=== PATIENT | female | born 1970 | race Caucasian/White ===

== ENCOUNTER 2022-12-09 08:05 | Outpatient (CLI) | payer OTHER, SELFPAY | END 2022-12-09 08:06 | disposition home or self-care (01) | LOC: NFLDREF 12-12 11:00 | PROVIDERS: PCP Internal Medicine; Referring Provider Internal Medicine; Visit Provider Internal Medicine | DX: Z13.6 Encounter for screening for cardiovascular disorders (principal) | CPT/HCPCS: 80061 ==

== ENCOUNTER 2023-08-09 15:31 | Emergency (ER) | payer OTHER, SELFPAY ==
[2023-08-09 15:41] VITALS: BP 114/77; RESP 16; TEMP 36.4; O2SAT 95; BMI 17.7
[2023-08-09 17:02] LABS: Basophils Percent Auto 0.5 % (0.0-3.0); Eosinophils Percent Auto 0.1 % (0.0-7.0); Hematocrit 46.8 % (33.0-51.0); Hemoglobin* 15.2 gm/dL (12.0-16.0); Immature Granulocytes Pct Auto 0.2 %; Lymphocytes Percent Auto 7.9 % (20-44); Mean Corpuscular HGB Conc 33 gm/dL (32-36); Mean Corpuscular Hemoglobin 29 pg (26-34); Mean Corpuscular Volume 90 fL (80-100); Monocytes Percent Auto 4.1 % (0.0-11.0); Neutrophils Percent Auto 87.2 % (42.0-72.0); Platelet Count* 204 K/uL (140-440); RDW Coefficient of Variation % 12.3 % (11.5-15.5); Red Blood Count 5.21 m/uL (4.00-5.20)
[2023-08-09 17:04] LABS: Slide Review Reflex No
[2023-08-09] MEDS: 0.9 % SODIUM CHLORIDE 1000 ml 1,000 ML IV ×2 (17:08→17:57)
[2023-08-09] MEDS: KETOROLAC 30 MG/ML inj IVP (17:08)
[2023-08-09] MEDS: ONDANSETRON 2 MG/ML inj 4 MG IVP (17:08)
[2023-08-09 17:24] LABS: Albumin* 4.7 g/dL (3.3-5.0)
[2023-08-09 17:25] LABS: Chloride* 103 mmol/L (96-114); Potassium* 4.2 mmol/L (3.6-5.1); Sodium* 136 mmol/L (135-149)
[2023-08-09 17:27] LABS: Alkaline Phosphatase* 36 U/L (40-150); Aspartate Amino Transferase* 46 U/L (12-35); Bilirubin Direct* 0.1 mg/dL (0.0-0.5); Bilirubin Total* 0.7 mg/dL (0.1-1.5); Total Protein* 7.7 g/dL (6.0-8.3)
[2023-08-09 17:28] LABS: Alanine Aminotransferase* 25 U/L (4-35); Creatinine* 0.6 mg/dL (0.5-1.5); Est. Creatinine Clearance* 80.32; Estimated Glomerular Filt Rate 109 ml/min; Lipase* 69 U/L (23-300)
[2023-08-09 17:29] LABS: Anion Gap 8 mEq/L (7-15); Blood Urea Nitrogen* 14 mg/dL (7-30); Calcium* 9.4 mg/dL (8.4-10.6); Carbon Dioxide* 25 mmol/L (20-32); Glucose* 79 mg/dL (60-115)
[2023-08-09 17:35] LABS: C Reactive Protein* < 0.5 mg/dL (0.5-1.0)
[2023-08-09 17:43] LABS: Amylase* 107 U/L (18-89)
[2023-08-09 18:06] LABS: Appearance Urine Clear (Clear); Bilirubin Urine Negative (Negative); Blood Urine Negative (Negative); Color Urine Yellow (Yellow); Glucose Urine Negative (Negative); Ketones Urine 2+ (Negative); Leukocyte Esterase Urine Negative (Negative); Nitrite Urine Negative (Negative); Protein Urine 1+ (Negative); Specific Gravity Urine >= 1.030 (1.000-1.030); Urobilinogen Urine 0.2 (0.2-1.0); pH Urine 5.5 (5.0-8.5)
[2023-08-09 18:07] LABS: Ur HCG Qualitative* Negative (Negative)
--- NOTE | 2023-08-09 18:12 | CRLHL7_ITS ---
For Patients: As a result of the Century Cures Act, medical imaging exams and procedure reports are released immediately into your electronic medical record. You may view this report before your referring provider. If you have questions, please contact your health care provider. INDICATION: Left flank pain TECHNIQUE: CT abdomen and pelvis with contrast. 49 mL Isovue 370 COMPARISON: None FINDINGS: Study limited due to lack of intra-abdominal fat. Lower chest: Unremarkable. Liver: Small low-attenuation lesion right posterior liver probably reflects small cyst Spleen: Unremarkable. Pancreas: Unremarkable. Gallbladder and bile ducts: Unremarkable. Kidneys: Unremarkable. No kidney or ureteral stones and no hydronephrosis. Adrenal glands: Unremarkable. GI tract: Large amount stool throughout the colon. Normal appendix. Neither 0 on Vascular structures: Unremarkable. Lymph nodes: Unremarkable. Miscellaneous: Unremarkable. No free air or significant free fluid. Pelvic Organs: Unremarkable. Bones: Unremarkable for age. IMPRESSION: 1. Lack of intra-abdominal fat limits evaluation. Kidneys are unremarkable without hydronephrosis or renal calculi seen. Normal appendix. Large amount of stool within the colon. Please note that all CT scans at this facility use dose modulation, iterative reconstruction, and/or weight-based dosing when appropriate to reduce radiation dose to as low as reasonably achievable. Dictated by Corrine Kinney MD @ 08/09/2023 6:58:41 PM (Electronically Signed)
[2023-08-09 18:21] LABS: Bacteria Urine Few; RBC Urine 0-2 (0-2); Squamous Epithelial Cell Urine Few (None-Few)
[2023-08-09] MEDS: MORPHINE 4 MG/ML INJ IVP (18:59)
--- NOTE | 2023-08-09 23:33 | ED_ITS ---
HPI - Abdominal Pain General Date Seen: 08/09/23 Chief Complaint: Abdominal Pain Stated Complaint: stomach pain, back pain, chills Time Seen by Provider: 08/09/23 15:49 Source: patient and family Mode of arrival: ambulatory Limitations: no limitations History of Present Illness HPI narrative: Patient is a 52-year-old female presents here with abdominal pain on the left upper area of her abdomen. This is been for the last day or so, does go to her back, she has had pain like this before, related to her irritable bowel syndrome, but says this is worse. Her bowel movements have been normal, she does eyes no blood in them there is no urination issues, she has no problems with dysuria frequency. Denies any fevers chills or sweats. She is not taking any medications for this. No history of trauma, MD elicited complaint: abdominal pain Pertinent past history: constipation Onset (ago): hour(s) Location: LUQ, LLQ and L flank Severity: moderate Quality: cramping and stabbing Radiation: none Migration to: no migration Exacerbating factors: movement Relieving factors: nothing Associated symptoms: nausea Related Data Patient : No Home Medications Medication Instructions Recorded Confirmed Lactobacillus cap PO DAILY 12/16/22 12/16/22 acidophilus-Bifidobac.animalis 2.5 billion cell capsule (Daily Probiotic) ascorbic acid (vitamin C) 1,000 mg 1 g PO BID 12/16/22 12/16/22 capsule calcium carbonate 600 mg-vitamin cap PO DAILY 12/16/22 12/16/22 D3 12.5 mcg (500 unit) capsule (Calcium 600 with Vitamin D3) cholecalciferol (vitamin D3) 25 1,000 unit PO DAILY 12/16/22 12/16/22 mcg (1,000 unit) tablet magnesium 200 mg tablet 600 mg PO QDAY 12/16/22 12/16/22 omega-3 fatty acids 1,250 mg 1,250 mg PO QDAY 12/16/22 12/16/22 capsule vitamin B complex 1 cap PO QDAY 12/16/22 12/16/22 zinc gluconate 50 mg tablet 50 mg PO QDAY 12/16/22 12/16/22 Previous Rx's Medication Instructions Recorded sertraline 100 mg tablet 100 mg PO QDAY #90 tabs 12/16/22 trazodone 50 mg tablet 25 mg (1/2 x 50 mg) PO QHS #45 tabs 12/16/22 Allergies Allergy/AdvReac Type Severity Reaction Status Date / Time Sulfa (Sulfonamide Allergy Mild Hives Verified 08/09/23 18:41 Antibiotics) amoxicillin AdvReac Unknown Hives Verified 08/09/23 18:41 Review of Systems Status of ROS Reports: 10 or more systems reviewed and unremarkable except as noted in History and below PFSH PFS Medical History History of anorexia nervosa ?Z86.59 - Personal history of other mental and behavioral disorders (ICD-10) Postconcussion syndrome (2017) ?F07.81 - Postconcussional syndrome (ICD-10) Surgical History Salivary gland absence Social History Smoking Status: Never smoker Little interest or pleasure in doing things: not at all Feeling down, depressed, or hopeless: not at all Exam Narrative: Exam Narrative: On examination I find her in room 2 she is in no apparent distress, pupils equal round reactive to light there is no scleral icterus or redness TMs are normal oropharynx normal there is no adenopathy anterior posterior chains, her chest is good air entry bilaterally with no wheezing crackles noted, heart sounds are normal she has some mild to moderate abdominal pain on the left abdominal region, she has scaphoid, there is noted masses noted bowel sounds are normal. No CVA tenderness no tenderness on palpation over her lumbar thoracic spine, no evidence of any rashes. Const: Vital Signs, click to edit/add: Vital Signs - 24 hr 08/09/23 15:41 Temperature 97.6 F Respiratory Rate 16 Blood Pressure [Ri ght Upper Arm] 114/77 Pulse Oximetry 95 Oxygen Delivery Me thod Room Air Documenting provider has reviewed patient's vital signs: yes Course Course ED Course: I discussed with her that this could be of very will of irritable bowel with constipation. A CT scan is a little bit less diagnostic because of her absence of fat, although we would see appendicitis, abscess, she does have a large amount of stool, and I think a reasonable approach here would be to use MiraLax, to see we can give her some improvement. I have asked her to come back if she has further worsening, Tylenol and ibuprofen for the discomfort, she was agreeable to this. Increase her fluid intake. Vital Signs Vital signs: Initial Vital Signs Temperature 97.6 F 08/09/23 15:41 Temperature Source Temporal Artery Scan 08/09/23 15:41 Respiratory Rate 16 08/09/23 15:41 Blood Pressure 114/77 08/09/23 15:41 Blood Pressure Mean 89 08/09/23 15:41 Blood Pressure Position Sitting 08/09/23 15:41 Pulse Oximetry 95 08/09/23 15:41 Oxygen Delivery Method Room Air 08/09/23 15:41 Vital Signs Temperature 97.6 F 08/09/23 15:41 Respiratory Rate 16 08/09/23 15:41 Blood Pressure 114/77 08/09/23 15:41 Pulse Oximetry 95 08/09/23 15:41 Oxygen Delivery Method Room Air 08/09/23 15:41 Temperature 97.6 F 08/09/23 15:41 Respiratory Rate 16 08/09/23 15:41 Blood Pressure 114/77 08/09/23 15:41 Pulse Oximetry 95 08/09/23 15:41 Oxygen Delivery Method Room Air 08/09/23 15:41 MDM - Abdominal Pain MDM Narrative Medical decision making narrative: During the evaluation of this patient I considered multiple differential diagnosis including life-threatening differentials which are appendicitis, aortic aneurysm, mesenteric ischemia, bowel perforation, ectopic , volvulus and bowel obstruction, other differential diagnosis include but are not limited to inflammatory bowel disease, cholecystitis, pancreatitis, hepatitis, gastritis, GERD, diverticulitis, peptic ulcer disease, pyelonephritis/UTI, renal colic/stone, pelvic inflammatory disease, cervicitis, endometritis, intrauterine , dysfunctional uterine bleeding, ovarian cyst/torsion, spontaneous as well as other etiologies Medical Records Attestation: I reviewed the patient's medical records. Lab Data Attestation: I reviewed the patient's lab results. Lab results narrative: White cell blood count was slightly elevated, hemoglobin normal, CRP was normal which is reassuring liver function tests were normal, the slight elevation of her amylase. I discussed with her to do a CT scan for further delineation. Labs: Lab Results 08/09/23 08/09/23 Range/Units 16:54 17:55 WBC 13.40 H (4.50-11.00) K/uL RBC 5.21 H (4.00-5.20) m/uL Hgb 15.2 (12.0-16.0) gm/dL Hct 46.8 (33.0-51.0) % MCV 90 (80-100) fL MCH 29 (26-34) pg MCHC 33 (32-36) gm/dL RDW Coeff of Sujit 12.3 (11.5-15.5) % Plt Count 204 (140-440) K/uL Neut % (Auto) 87.2 H (42.0-72.0) % Lymph % (Auto) 7.9 L (20-44) % Hardeman % (Auto) 4.1 (0.0-11.0) % Eos % (Auto) 0.1 (0.0-7.0) % Baso % (Auto) 0.5 (0.0-3.0) % Neut # (Auto) 11.70 H (1.7-7.0) K/uL Lymph # (Auto) 1.10 (0.90-2.90) K/uL Hardeman # (Auto) 0.50 (0.00-0.90) K/UL Eos # (Auto) 0.00 (0.00-0.50) K/uL Baso # (Auto) 0.10 (0.00-0.30) K/uL Abs Immat Gran (auto) 0.00 (0.00-0.30) K/uL Imm/Tot Granulo (auto) 0.2 % Sodium 136 (135-149) mmol/L Potassium 4.2 (3.6-5.1) mmol/L Chloride 103 (96-114) mmol/L Carbon Dioxide 25 (20-32) mmol/L Anion Gap 8 (7-15) mEq/L BUN 14 (7-30) mg/dL Creatinine 0.6 (0.5-1.5) mg/dL Estimated Creat Clear 80.32 Estimated GFR 109 ml/min Glucose 79 (60-115) mg/dL Calcium 9.4 (8.4-10.6) mg/dL Total Bilirubin 0.7 (0.1-1.5) mg/dL Direct Bilirubin 0.1 (0.0-0.5) mg/dL AST 46 H (12-35) U/L ALT 25 (4-35) U/L Alkaline Phosphatase 36 L (40-150) U/L C-Reactive Protein < 0.5 L (0.5-1.0) mg/dL Total Protein 7.7 (6.0-8.3) g/dL Albumin 4.7 (3.3-5.0) g/dL Amylase 107 H (18-89) U/L Lipase 69 (23-300) U/L Urine Color Yellow (Yellow) Urine Appearance Clear (Clear) Urine pH 5.5 (5.0-8.5) Ur Specific [place] >= 1.030 (1.000-1.030) Urine Protein 1+ A (Negative) Urine Glucose (UA) Negative (Negative) Urine Ketones 2+ A (Negative) Urine Blood Negative (Negative) Urine Nitrite Negative (Negative) Urine Bilirubin Negative (Negative) Urine Urobilinogen 0.2 (0.2-1.0) Ur Leukocyte Esterase Negative (Negative) Urine RBC 0-2 (0-2) Urine WBC 2-5 (0-5) Ur Squamous Epith Cells Few (None-Few) Urine Bacteria Few A (None) Urine HCG, Qual Negative (Negative) Imaging Data CT scan - abdomen: Attestation: I have reviewed the pertinent imaging results. Radiologist's impression: Patient: MARCELLUS PEREA Facility:?[facility] Patient ID:?[id number] Site Patient ID:?[id number]. Site :?[id number] Study:?CT Abdomen/Pelvis 49CC ISOVUE 370-08/09/2023 6:37:03 PM Ordering Physician:Wade Dominguez Final Report: INDICATION: Left flank pain TECHNIQUE: CT abdomen and pelvis with contrast. 49 mL Isovue 370 COMPARISON: None FINDINGS: Study limited due to lack of intra-abdominal fat. Lower chest: Unremarkable. Liver: Small low-attenuation lesion right posterior liver probably reflects small cyst Spleen: Unremarkable. Pancreas: Unremarkable. Gallbladder and bile ducts: Unremarkable. Kidneys: Unremarkable. No kidney or ureteral stones and no hydronephrosis. Adrenal glands: Unremarkable. GI tract: Large amount stool throughout the colon. Normal appendix. Neither 0 on Vascular structures: Unremarkable. Lymph nodes: Unremarkable. Miscellaneous: Unremarkable. No free air or significant free fluid. Pelvic Organs: Unremarkable. Bones: Unremarkable for age. IMPRESSION: 1. Lack of intra-abdominal fat limits evaluation. Kidneys are unremarkable without hydronephrosis or renal calculi seen. Normal appendix. Large amount of stool within the colon. Please note that all CT scans at this facility use dose modulation, iterative reconstruction, and/or weight-based dosing when appropriate to reduce radiation dose to as low as reasonably achievable. Dictated by Corrine Kinney MD @ 08/09/2023 6:58:41 PM (Electronic Signature) Discharge Plan Discharge Clinical Impression: Abdominal pain, Constipation Patient Disposition: Home, Self-Care Condition: Stable Instructions: Constipation (DC), Abdominal Pain (ED) Additional Instructions: Labs look really good, white count minimally elevated. CT scan did not show any kidney stones, kidney infection, again test is a little bit not as sensitive based on the fact the lack of fat. Lots of stool. Can I wonder if this is more like you say a variant of irritable bowel of the constipation type. Would suggest we use MiraLax 1 cap full with 20 oz of water twice a day for couple days to see we can give you some relief, Tylenol or ibuprofen would be another treatment for pain you can use, but I would try to avoid narcotic medication, as this will DIS constipate her further. Increasing abdominal pain, nausea vomiting or fevers he should re be re- presented to the emergency room for evaluation Activity Level: No Restrictions Discharge Diet: Regular Prescriptions: No Action cholecalciferol (vitamin D3) 25 mcg (1,000 unit) tablet 1,000 unit PO DAILY zinc gluconate 50 mg tablet 50 mg PO QDAY omega-3 fatty acids 1,250 mg capsule 1,250 mg PO QDAY magnesium 200 mg tablet 600 mg PO QDAY calcium carbonate-vitamin D3 [Calcium 600 with Vitamin D3] 600 mg-12.5 mcg (500 unit) capsule PO DAILY ascorbic acid (vitamin C) 1,000 mg capsule 1 g PO BID vitamin B complex Capsule 1 cap PO QDAY Daily Probiotic 2.5 billion cell capsule PO DAILY sertraline 100 mg tablet 100 mg PO QDAY Qty: 90 3RF trazodone 50 mg tablet 25 mg PO QHS Qty: 45 3RF Follow Up/Referrals: Harmony Boudreaux MD [Primary Care Provider] - Stand Alone [facility] Info Inst[facility]
== END 2023-08-09 19:21 | disposition home or self-care (01) ==
PROVIDERS: Emergency Provider Family Medicine; PCP Internal Medicine
DX: R10.12 Left upper quadrant pain (principal); K59.00 Constipation, unspecified
CPT/HCPCS: 36415; 74177; 80048; 80076; 81001; 81025; 82150; 83690; 85025; 86140; 87086; 96374; 96375; 99284; J1885; J2270; J2405; J7030; Q9967

== ENCOUNTER 2024-08-03 09:02 | Outpatient (CLI) | payer OTHER, SELFPAY ==
--- OUTSIDE RECORDS SUMMARY | 2024-08-03 09:04 | XMS_ITS | Clinical Summary ---
Author Organization [employer] [facility] Address [place], [place] [address] Care Team Providers Care Case Management Associate Name Role Phone Harmony Boudreaux MD Primary Care Provider [phone] Allergies Active Allergy Reactions Criticality Noted Date Comments Sulfa (Sulfonamide Antibiotics) Hives 01/2007 Medications Medication Sig Dispensed Refills Start Date End Date Status ZOLOFT 50 MG TABIndications:Anxiet y state, unspecified take 1/2 tablet (50 mg) by oral route once daily for three days then one tablet by oral route daily 30 2 06/29/2007 Active traZODone (DESYREL) 50 mg tablet Take 50 mg by mouth at bedtime. Active Breast Pump - PurchaseIndications:L actation disorder For home use. Gestation age at delivery: 30 weeks. Reason for need: separation, prematurity. Length of need: 6 months 1 Device 0 09/03/2015 Active Breast Pump-RentalIndication s: disorder For home use. Gestation age at delivery: 30 weeks. Reason for need: separation, prematurity. Length of need: 6 months 1 Device 0 09/03/2015 Active ascorbic acid SR (VITAMIN C) 500 mg capsule Take 1 capsule by mouth once daily. 0 02/19/2018 Active Active Problems Problem Noted Date Diagnosed Date S/P emergency CS, done@ [place] 08/31/2015 Overview (08/31/2015): 'Prem Bell today@11am; post operative transfer to be with baby. labor in third trimester with de livery 08/31/2015 Overview (08/31/2015): 30.4 weeks EGA Factor 5 Leiden mutation, heterozygous 5 Overview (08/31/2015): no clot history; dx'd due to family member mild anemia complicating in third trim servando 06/05/2015 Resolved Problems Problem Noted Date Diagnosed Date Resolved Date Generalized anxiety disorder 07/22/2007 08/31/2015 Eating disorder, unspecified 06/25/2007 08/31/2015 Anxiety state, unspecified 06/08/2007 1 10/31/2014 Social History Tobacco Use Types Packs/Day Years Used Date Smoking Tobacco: Never Smokeless Tobacco: Never Tobacco Cessation:Counseling Given: Yes Alcohol Use Standard Drinks/Week Comments No 0 (1 standard drink = 0.6 oz pur e alcohol) Sex and Gender Information Value Date Recorded Sex Assigned at Not on file Gender Identity Not on file Sexual Orientation Not on file Obstetrics History Para Term AB IAB SAB Ectopic Multiple Livin g Live Births 1 1 1 Date Outcome GA Total Labor Labor/2nd/3rd Weight Sex Type Anes PTL Jo Ann A1 A5 Name Clin 015 30w 4d F CS-LV ertic al Spinal Y 0 6 Sharon Mckeon MD Complications: Intolera nce Delivery Location:[place] Comments:7@10 min.; in verted'T' [email or web address]->[email or web address]-> [facility] Last Filed Vital Signs Vital Sign Reading Time Taken Comments Blood Pressure 96/60 02/19/2018 1:45 PM CDT Pulse 74 02/19/2018 1:45 PM CDT Temperature 36.8 ??C (98.3 ??F) 09/03/2015 1 0:00 AM MANAGER OF MAINTENANCE Respiratory Rate 16 09/03/2015 10:0 0 AM MANAGER OF MAINTENANCE Oxygen Saturation 97% 02/19/2018 1:45 PM CDT Inhaled Oxygen Concentration - - Weight 46.2 kg (101 lb 12.8 oz) 02/19/2018 1:45 PM CDT Height 160 cm (5' 3) 08/31/2015 5:01 PM MANAGER OF MAINTENANCE Body Mass Index 18.03 08/31/2015 5:01 PM MANAGER OF MAINTENANCE Plan of Treatment Health Maintenance Due Date Last Done Comments Tdap 1983 Depression screening for age 12+ 1984 HIV for age 15-65 1987 BMI (ht and wt on same day) for age 18+ 1990 Hepatitis C screening for ag e 18-79 1990 Tetanus booster 1992 Colonoscopy through age 75 2017 Lipids for age 45-75 2017 Mammogram for age 45-75 2017 Pap test for age 21-65 03/30/2018 5, 03/30/2015 Zoster (shingles) series for age 50+ (1 of 2) 2022 COVID-19 vaccine series ( season) 2024 Influenza for age 50-64 06/05/2024 Pneumococcal series for age 6-64 Aged Out No longer eligible b ased on patient's age to complete this topic Procedures Procedure Name Priority Date/Time Associated Diagnosis Comments REVENUE AGENT THIN PREP PAP SCREEN IMAGED Routine 03/30/2015 1:01 PM CDT from Last 3 Months or Most Recently Relevant to Health Maintenance Results * REVENUE AGENT THIN PREP PAP SCREEN IMAGED (03/30/2015 1:01 PM CDT) REVENUE AGENT CYTOLOGY See Anatomic Pathology case 04/07/2015 2:00 PM CDT [facility] Specimen (specimen) (Cervical/Vagina l) Client Collect / Unknown 03/30/2015 1:01 PM CDT 04/02/2015 1:01 PM CDT Sharon Mckeon MD PATHOLOGY/CYTOLOGY [facility] [address] [place] [address], from Last 3 Months or Most Recently Relevant to Health Maintenance Advance Directives * Full Code (Latest Code Status on File) Date Activated Date Inactivated Comments 08/31/2015 5:19 PM 09/03/2015 3:50 PM Care Teams Case Management Associate Relationship Specialty Start Date End Date Harmony Boudreaux MD [address] [place] [address] PCP - General Internal Medicine 02/19/18
--- NOTE | 2024-08-03 09:15 | CRLHL7_ITS ---
For Patients: As a result of the Century Cures Act, medical imaging exams and procedure reports are released immediately into your electronic medical record. You may view this report before your referring provider. If you have questions, please contact your health care provider. Indication: Right shoulder pain. Procedure : Informed consent was obtained. The site was marked. Time-out was performed. The skin of the right shoulder was cleansed with ChloraPrep. A sterile drape was placed. 8 cc of 1 percent lidocaine was administered for superficial anesthesia. Subsequently a 22 gauge spinal needle was introduced into the right shoulder joint under intermittent fluoroscopic guidance. Injection of 2 cc nonionic Omnipaque 240 contrast confirmed intra-articular location. Subsequently 11 cc of dilute gadolinium were injected. The needle was removed and hemostasis achieved with direct pressure. A dressing was placed. The patient tolerated the procedure well without immediate complication and was immediately sent to MRI for imaging. Total fluoroscopy time 15 seconds. Impression: Successful fluoroscopically guided right shoulder arthrogram for MRI. Dictated by Leland Worley MD @ 08/03/2024 12:49:41 PM (Electronically Signed)
--- NOTE | 2024-08-03 10:15 | CRLHL7_ITS ---
For Patients: As a result of the 21st Century Cures Act, medical imaging exams and procedure reports are released immediately into your electronic medical record. You may view this report before your referring provider. If you have questions, please contact your health care provider. CLINICAL INDICATION: Pain. Shoulder sprain. COMPARISON IMAGING STUDIES: Fluoroscopic spot films from 08/03/2024. TECHNICAL: MR arthrogram right shoulder with contrast. Axial, sagittal oblique and coronal oblique T1 FS, PD FS and [id number] images. T1 FS images were also acquired with the patient`s shoulder in the ABER position.1.5 Allegra MR scanner. Shoulder surface coil. FINDINGS: GLENOHUMERAL JOINT: Humeral Head Articular Cartilage: Maintained. Glenoid Articular Cartilage: Maintained. Loose Bodies: None seen. Glenoid Labrum, Glenohumeral Ligaments and Capsule: The labrum below the equator is intact. There is no Bankart or Bankart variant labral tear. Degenerative fraying/mild degenerative tearing of the superior labrum is noted on coronal oblique PD fat-sat image number 14 of series 6 for example. Middle glenohumeral ligament is somewhat diminutive in size. Anterior and posterior bands of the inferior glenohumeral ligament are intact for Alignment: Maintained. OSSEOUS STRUCTURES: There is an acute or subacute fracture of the greater tuberosity of the right proximal humerus. Fracture demonstrates 3 millimeters of displacement. Associated bone marrow edema is present. CORACOACROMIAL ARCH: Acromial Morphology: Type 2 acromial morphology. Mild anterior lateral downward sloping of the acromion. No os acromiale. No significant subacromial spur. Lateral acromial thickness is 6 mm. Acromiohumeral Interval: At its narrowest, the interval measures 7 mm. Coracohumeral Interval: At its narrowest, the coracohumeral interval measures 15 mm. Coracoid index is 0 mm. ACROMIOCLAVICULAR JOINT REGION: AC joint maintained. Coracoclavicular ligament intact. BURSAE: No bursal fluid collection. ROTATOR CUFF TENDONS AND MUSCLES AND DELTOID: Supraspinatus and Infraspinatus: Tendinosis or strain of the distal supraspinatus and infraspinatus tendons. There is undersurface irregularity of the supraspinatus tendon compatible with low to moderate grade partial-thickness undersurface tendon tearing and fraying. Mild changes involve the infraspinatus tendon. There is no full-thickness tear of either distal tendon nor is there muscle atrophy. Teres Minor: Distal teres minor tendon is intact. Teres minor muscle mass maintained. Subscapularis: Mild distal subscapularis tendinosis. No subscapularis tendon tear or muscle atrophy. Deltoid: No muscle atrophy. BICEPS TENDON, LONG HEAD: Degenerative labral changes extend to the biceps anchor region. The biceps anchor does not appear frankly disrupted. There is no subluxation or dislocation of tendon from bicipital groove. OTHER FINDINGS: There is no abnormality within the suprascapular or spinoglenoid notches nor within the quadrilateral space. No axillary adenopathy or mass. IMPRESSION: 1. Acute versus subacute fracture of the greater tuberosity of the right proximal humerus with 3 millimeters of displacement and associated bone marrow edema. 2. Tendinosis or strain of the distal supraspinatus and infraspinatus tendons. Low to focally moderate grade partial-thickness undersurface tendon tearing and fraying of the supraspinatus tendon. Mild changes involve the undersurface of the infraspinatus tendon. No full-thickness tear or muscle atrophy. 3. Mild distal subscapularis tendinosis. 4. Degenerative fraying/mild degenerative tearing of the superior labrum. Other portions of labrum are intact. Dictated by Lamberto Mack MD @ 08/03/2024 3:04:40 PM (Electronically Signed)
== END 2024-08-03 09:03 | disposition home or self-care (01) ==
LOC: RAD 09:02
PROVIDERS: PCP Internal Medicine; Visit Provider Internal Medicine
DX: M25.511 Pain in right shoulder (principal); S42.201A Unspecified fracture of upper end of right humerus, initial encounter for closed fracture; S43.401A Unspecified sprain of right shoulder joint, initial encounter
CPT/HCPCS: 23350; 73222; 77002; A9575; Q9966

== ENCOUNTER 2024-11-21 13:45 | Outpatient (RCR) | payer OTHER, SELFPAY | END 2025-03-01 07:19 | disposition home or self-care (01) | PROVIDERS: PCP Internal Medicine; Visit Provider Physician Assistant | DX: S42.251A Displaced fracture of greater tuberosity of right humerus, initial encounter for closed fracture (principal); M65.4 Radial styloid tenosynovitis [de Quervain]; Z51.89 Encounter for other specified aftercare | CPT/HCPCS: 97110; 97140; 97161 ==

== ENCOUNTER 2024-11-24 09:45 | Outpatient (RCR) | payer OTHER, SELFPAY | END 2025-03-24 23:59 | disposition home or self-care (01) | PROVIDERS: PCP Internal Medicine; Visit Provider Internal Medicine | DX: M67.931 Unspecified disorder of synovium and tendon, right forearm (principal); S42.251D Displaced fracture of greater tuberosity of right humerus, subsequent encounter for fracture with routine healing; M65.4 Radial styloid tenosynovitis [de Quervain]; Z51.89 Encounter for other specified aftercare | CPT/HCPCS: 97033; 97035; 97110; 97140; 97165; 97530; 97535; L3806; X5282 ==